=== PATIENT | female | born 1955 | race Caucasian/White ===

== ENCOUNTER → 2021-01-18 | Outpatient (CLI) | payer MEDICARE | END | disposition home or self-care (01) | LOC: CFH 12:34 | PROVIDERS: ATTEND Internal Medicine Cardiovascular Disease | DX: I08.0 Rheumatic disorders of both mitral and aortic valves (principal); I11.9 Hypertensive heart disease without heart failure; R06.02 Shortness of breath; R55 Syncope and collapse; R01.1 Cardiac murmur, unspecified | CPT/HCPCS: 93306 ==

== ENCOUNTER 2021-01-20 11:43 | Outpatient (CLI) | payer MEDICARE ==
[~2021-01-20 11:43] MED LIST: REGADENOSON 0.4 MG/5 ML SYRINGE ONE
== END 2021-01-20 23:59 | disposition home or self-care (01) ==
LOC: CFH 11:43
PROVIDERS: ATTEND Internal Medicine Cardiovascular Disease
DX: I10 Essential (primary) hypertension (principal); R55 Syncope and collapse; R06.02 Shortness of breath; R01.1 Cardiac murmur, unspecified
CPT/HCPCS: 78452; 93017; A9502; J2785

== ENCOUNTER 2021-04-29 12:07 | Day surgery (SDC) | payer MEDICARE ==
[~2021-04-29] VITALS: Ht 167.6 cm; Wt 69.0 kg
[2021-04-29] MEDS ORDERED: LIDOCAINE 2%, 20ML ONE (13:32)
== END 2021-04-29 14:21 | disposition home or self-care (01) ==
LOC: CACL 12:07
PROVIDERS: ATTEND Internal Medicine Cardiovascular Disease
DX: R55 Syncope and collapse (principal); I35.0 Nonrheumatic aortic (valve) stenosis; I10 Essential (primary) hypertension; E78.00 Pure hypercholesterolemia, unspecified; I65.22 Occlusion and stenosis of left carotid artery; R41.3 Other amnesia; Z79.82 Long term (current) use of aspirin; Z79.899 Other long term (current) drug therapy; Z88.8 Allergy status to other drugs, medicaments and biological substances
CPT/HCPCS: 33285; C1764